=== PATIENT | male | born 1975 ===

== ENCOUNTER 2020-05-09 08:17 | Outpatient (REF) | payer OTHER, SELFPAY ==
[2020-05-09 10:26] LABS: Alanine Aminotransferase 57 U/L (0-40); Albumin Level 4.3 g/dL (3.5-5.0); Alkaline Phosphatase 64 U/L (39-117); Aspartate Amino Transferase 23 U/L (5-37); Bilirubin Direct 0.2 mg/dL (0.0-0.5); Bilirubin Total 0.3 mg/dL (0.0-1.0); Cholesterol 146 mg/dL; HDL Cholesterol 38 mg/dL; LDL Cholesterol Calculated 67 mg/dl; Total Protein 6.9 g/dL (6.5-8.0); Triglycerides 207 mg/dL
== END 2020-05-09 08:18 | disposition home or self-care (01) ==
LOC: HO.LAB 08:17
PROVIDERS: Visit Provider Internal Medicine
DX: I21.4 Non-ST elevation (NSTEMI) myocardial infarction (principal)
CPT/HCPCS: 80061; 80076

== ENCOUNTER 2020-09-03 08:39 | Outpatient (REF) | payer OTHER, SELFPAY ==
[2020-09-03 11:03] LABS: Alanine Aminotransferase 70 U/L (0-40); Albumin Level 4.5 g/dL (3.5-5.0); Alkaline Phosphatase 77 U/L (39-117); Aspartate Amino Transferase 26 U/L (5-37); Bilirubin Direct 0.2 mg/dL (0.0-0.5); Bilirubin Total 0.5 mg/dL (0.0-1.0); Total Protein 7.5 g/dL (6.5-8.0)
== END 2020-09-03 08:40 | disposition home or self-care (01) ==
LOC: HO.LAB 08:39
PROVIDERS: Visit Provider Internal Medicine
DX: I25.10 Atherosclerotic heart disease of native coronary artery without angina pectoris (principal); R94.5 Abnormal results of liver function studies
CPT/HCPCS: 36415; 80076

== ENCOUNTER → 2020-09-06 08:48 | Outpatient (BNVA) | payer OTHER, SELFPAY | PROVIDERS: PCP Internal Medicine; Visit Provider Internal Medicine | DX: I25.10 Atherosclerotic heart disease of native coronary artery without angina pectoris (principal); I10 Essential (primary) hypertension; R94.5 Abnormal results of liver function studies | CPT/HCPCS: 93005; 99212 ==

== ENCOUNTER → 2020-10-10 09:02 | Outpatient (REF) | payer OTHER, SELFPAY | LOC: HO.SL 09:02 | PROVIDERS: Visit Provider Internal Medicine | DX: Z13.89 Encounter for screening for other disorder (principal) ==

== ENCOUNTER → 2021-03-02 09:11 | Outpatient (BNVA) | payer OTHER, SELFPAY | PROVIDERS: Visit Provider Internal Medicine | DX: I25.10 Atherosclerotic heart disease of native coronary artery without angina pectoris (principal); I10 Essential (primary) hypertension; G47.33 Obstructive sleep apnea (adult) (pediatric); R94.5 Abnormal results of liver function studies | CPT/HCPCS: 99212 ==

== ENCOUNTER 2021-10-08 07:48 | Emergency (ER) | payer OTHER, SELFPAY ==
[2021-10-08 08:23] VITALS: PULSE 69; RESP 19; TEMP 36.6; O2SAT 98; BMI 32.8
--- NOTE | 2021-10-08 08:27 | ED.BACK ---
HPI - Back Pain/Injury General Chief Complaint: Back Pain/Injury Stated Complaint: Lower back pain Time Seen by Provider: 10/08/21 08:17 Source: patient Mode of arrival: ambulatory Limitations: no limitations History of Present Illness HPI Narrative: Patient reports that 1 week ago he was lifting a very large and heavy [place] while at work and felt a sudden pull in his right lower back and has had pain ever since. The pain is constant. Described as aching/spasming. Made worse with ambulation and movement. Radiates to the right lateral thigh. Unrelieved by ibuprofen and Tylenol and lidocaine patch. Denies fevers, chills, burning with micturition, urinary frequency, urgency, hesitancy, bladder or bowel dysfunction, numbness or tingling of the perineum or bilateral legs. Denies any recent surgical procedures, any known immune compromising conditions, personal history of cancer, or IV drug usage. Related Data Previous Rx's Medication Instructions Recorded aspirin 81 mg tablet,delayed 81 mg PO DAILY 90 Days #90 tab 04/11/21 release atorvastatin 80 mg tablet 80 mg PO DAILY 90 Days #90 tab 04/11/21 metoprolol succinate 50 mg 50 mg PO DAILY 90 Days #90 tab 04/11/21 tablet,extended release 24 hr cyclobenzaprine 10 mg tablet 10 mg PO TID PRN #20 tab 10/08/21 naproxen 500 mg tablet 500 mg PO BID PRN #20 tab 10/08/21 Allergies Allergy/AdvReac Type Severity Reaction Status Date / Time No Known Allergies Allergy Verified 03/02/21 09:16 Review of Systems Review of Systems: Constitutional: No weight loss, fever, chills, weakness or fatigue. HEENT: No visual loss, blurred vision, double vision. No hearing loss, sneezing, congestion, runny nose or sore throat. Skin: No rash or itching. Cardiovascular: No chest pain, chest pressure or chest discomfort. No palpitations or pedal edema. Respiratory: No shortness of breath, cough or sputum production. Gastrointestinal: No anorexia, nausea, vomiting or diarrhea. No abdominal pain or blood in stool. Genitourinary: No burning micturition. No urinary frequency or incontinence. Neurologic: No headache, dizziness, syncope, unilateral weakness, ataxia, numbness or tingling in the extremities. No change in bowel or bladder control. Musculoskeletal: + Back pain as noted in HPI. No joint pain or stiffness. Hematologic: No bleeding or bruising. Lymphatics: No enlarged lymph nodes. Psychiatric:No depression or anxiety. Endocrine: No reports of sweating. No cold or heat intolerance. No polyuria or polydipsia. [facility] Past Medical History Attestation statement: The following information was validated with the patient. Source: old records reviewed Medical History Atherosclerotic cardiovascular disease Essential hypertension Surgical History History of cardiac catheterization (~08/04/16) Family History Family History Father CVD (cardiovascular disease) Mother CVD (cardiovascular disease) Social History Social History Patient Tobacco Use Status: Never used Tobacco Advance Directives: No Advance Directives Information Provided: No Physical Exam Vital Signs: Vital Signs: Last Vital Signs Temp 98 F 10/08/21 08:23 Pulse 69 10/08/21 08:23 Resp 19 10/08/21 08:23 BP 142/82 H 10/08/21 08:54 Pulse Ox 98 10/08/21 08:23 BMI result Body Mass Index 32.8 Vital signs have been reviewed as normal and appeared to be correct. Blood pressure normal.? Heart rate normal.? Respiration rate normal. Temperature normal.? Oxygen saturation normal. Appearance: Alert.?Oriented to person, place and time. No acute distress.?Normal affect. Eyes: Pupils equal, round and reactive to light.? ENT: Pharynx normal.?? Neck: Normal inspection.? Neck supple.?? CVS: Heart sounds normal. Normal heart rate and rhythm.? Pulses normal; bilateral radial pulses 2+, bilateral posterior tibial/dorsalis pedis pulses 2+.? Respiratory: No respiratory distress.? Lung sounds clear to auscultation bilaterally?? Abdomen: Soft and non-tender. Normoactive bowel sounds. Skin: Skin warm and dry.? Normal skin color.? ? Extremities: No lower extremity edema.? No calf ttp? Back: + moderate paraspinal muscular tenderness and spasming over right lumbar region. No CVA tenderness. No midline spinal tenderness, step-off's, or deformity. Full AROM intact in bilateral lower extremities. Straight leg test positive on right; Straight leg test negative on left. No rashes, lesions, areas of induration or fluctuance, or signs of infection noted. Neuro: Moves all extremities spontaneously. 5/5 strength in hip extension/flexion, abduction, adduction. Sensation to light touch intact bilaterally. Patellar and Achilles reflex 2+ bilaterally. No ataxia, gait normal and steady. No focal neuro deficits. Course Course Course Narrative: Patient is a 46-year-old male with past medical history of hypertension, CVD, NSTEMI status post catheterization. Presents for evaluation of acute onset lower back pain with precipitating injury at work. Pain is most consistent with muscular pain, although cannot completely exclude herniated disc. On neurological exam there are no deficits. Not consistent with spinal fracture, spinal infection, epidural abscess, AAA, epidural abscess, or dissection. No high risk past medical history including incontinence, fever, immunosuppression, recent surgery or lumbar puncture, coagulopathy, significant trauma, recent unintentional weight loss, pulsatile mass, history of cancer, history of TB, history of IV drug use that would warrant MRI or CT. Not consistent with pyelonephritis, urinary tract infection, renal calculi, appendicitis, diverticulitis. On exam no concern for cauda equina syndrome. No imaging is currently indicated at this time. Patient received Toradol and cyclobenzaprine while in the ED and tolerated well. Plan for discharge home with naproxen and Flexeril, reviewed importance of rest and slow progression to lower back exercises, discussed reasons to return to the emergency department, and follow-up with primary care provider, and patient agreed with plan. MDM - Back Pain/Injury Medical Records Attestation: I reviewed the patient's medical records. Discharge Plan Discharge Clinical Impression: Strain of lumbar region Patient Disposition: Home, Self-Care Instructions: Low Back Strain (ED), Acute Low Back Pain (ED), Lower Back Exercises (ED) Additional Instructions: Take naproxen twice daily as needed for pain. Do not take additional [id number] medications such as ibuprofen/Motrin, Aleve with this medication. If the naproxen is not helping you may take Flexeril, this is a muscle relaxer and can be sedating. It may make you drowsy. Please do not drive or operate machinery for 8 hours after taking this medication. Please be sure to rest and beginning gauging and lower back exercises over the next week. Please contact her primary care provider to schedule a follow-up visit within 1 week. You may return to the emergency department with any new or worsening symptoms or concerns. Prescriptions: New naproxen 500 mg tablet 500 mg PO BID PRN (Reason: pain) Qty: 20 0RF cyclobenzaprine 10 mg tablet 10 mg PO TID PRN (Reason: muscle spasm) Qty: 20 0RF No Action atorvastatin 80 mg tablet 80 mg PO DAILY 90 Days Qty: 90 3RF metoprolol succinate 50 mg tablet extended release 24 hr 50 mg PO DAILY 90 Days Qty: 90 3RF aspirin 81 mg tablet,delayed release (DR/EC) 81 mg PO DAILY 90 Days Qty: 90 3RF Stand Alone Forms: Work/School Release Interventions: ED Discharge Assessment Last Done: 10/08/21 09:55 Discharge Date/Time: 10/08/21 09:30
[2021-10-08] MEDS: Cyclobenzaprine HCl 10 MG TABLET PO (08:33)
[2021-10-08] MEDS: Ketorolac Tromethamine 60 MG/2 ML VIAL IM (08:37)
[2021-10-08 08:54] VITALS: BP 142/82
== END 2021-10-08 09:30 | disposition home or self-care (01) ==
PROVIDERS: Emergency Provider Emergency Medicine
DX: M54.50 Low back pain, unspecified (principal); M79.651 Pain in right thigh; Z79.899 Other long term (current) drug therapy; Z79.82 Long term (current) use of aspirin
CPT/HCPCS: 96372; 99283; J1885

== ENCOUNTER 2022-03-02 12:58 | Emergency (ER) | payer OTHER, SELFPAY ==
--- NOTE | ~2022-03-02 | XR_ITS ---
EXAMINATION: XR FOOT, RIGHT CLINICAL INFORMATION: Pain, swelling and bruising COMPARISON: None TECHNIQUE: AP, lateral, and oblique views of the right foot. FINDINGS: There is question of a nondisplaced fracture of the distal tuft of the fifth toe. No other fracture is seen. Joint spaces are normal. Soft tissues are normal. XR/XR foot RT min 3V IMPRESSION: Question nondisplaced fracture of the distal tuft of the fifth toe.
[2022-03-02 13:26] VITALS: BP 165/89; PULSE 83; RESP 16; TEMP 36.9; O2SAT 98; BMI 31.1
--- NOTE | 2022-03-02 15:48 | ED_ITS ---
HPI - Extremity Problem General Chief complaint: Extremity Injury, Upper Stated complaint: toe INJ Time Seen by Provider: 03/02/22 15:48 History of Present Illness HPI Narrative: Patient complains of pain in right 3rd 4th and 5th toes after dropping a dumbbell on his foot, no other injury no numbness no weakness no tingling Related Data Previous Rx's Medication Instructions Recorded aspirin 81 mg tablet,delayed 81 mg PO DAILY 90 days #90 tabs 04/11/21 release atorvastatin 80 mg tablet 80 mg PO DAILY 90 days #90 tabs 04/11/21 metoprolol succinate 50 mg 50 mg PO DAILY 90 days #90 tabs 04/11/21 tablet,extended release 24 hr cyclobenzaprine 10 mg tablet 10 mg PO TID PRN muscle spasm #20 10/08/21 tabs naproxen 500 mg tablet 500 mg PO BID PRN pain #20 tabs 10/08/21 acetaminophen 500 mg tablet 1,000 mg PO QID PRN pain #30 tabs 03/02/22 oxycodone 5 mg tablet 5 mg PO Q6H PRN pain #7 tabs 03/02/22 Allergies Allergy/AdvReac Type Severity Reaction Status Date / Time No Known Allergies Allergy Verified 01/19/22 14:50 Review of Systems Review of Systems: Positive for right 3rd 4th and 5th negatives are no head injury no headache no neck pain no back pain no numbness no weakness no tingling no laceration no other extremity injuries Yes all other systems are reviewed and are negative PMFSH Past Medical History Source: nursing notes reviewed Medical History Atherosclerotic cardiovascular disease Essential hypertension Surgical History History of cardiac catheterization (~08/04/16) Family History Family History Father CVD (cardiovascular disease) Mother CVD (cardiovascular disease) Social History Social History (System 01/19/22 @ 14:50 by Laney Yuan) Patient Tobacco Use Status: Never used Tobacco Advance Directives: No Advance Directives Information Provided: No Physical Exam Vital Signs: Vital Signs: Last Vital Signs Temp 98.5 F 03/02/22 13:26 Pulse 83 03/02/22 13:26 Resp 16 03/02/22 13:26 BP 165/89 H 03/02/22 13:26 Pulse Ox 98 03/02/22 13:26 O2 Del Method 03/02/22 13:26 BMI result Body Mass Index 31.1 General appearance is no acute distress Head is normocephalic atraumatic Neck is supple nontender The back full range of motion Extremities full range of motion x4 Right foot exam the 3rd 4th and 5th toes are ecchymotic, skin is intact, neurovascular intact distal Neuro no focal motor sensory deficits Skin no lacerations Course Course Course Narrative: X-ray showed probable fracture of the right pinky toe, but no other fracture seen Patient is given walking shoe gisselle tape follow-up with ag equipment field service technician as needed and ambulated from the ER Discharge Plan Discharge Clinical Impression: Fracture of toe, Contusion of toe Patient Disposition: Home, Self-Care Additional Instructions: I believe you cracked the bone in her pinky toe but I did not see any other fracture Follow with ag equipment field service technician or orthopedist as needed These fractures usually heal on their own and the only treatment is to wear shoe that does not press on the fracture and is comfortable Return any concerns Prescriptions: New acetaminophen 500 mg tablet 1,000 mg PO QID PRN (Reason: pain) Qty: 30 0RF oxycodone 5 mg tablet 5 mg PO Q6H PRN (Reason: pain) Qty: 7 0RF Rx Instructions: Partial Fill upon patient request. No Action atorvastatin 80 mg tablet 80 mg PO DAILY 90 Days Qty: 90 3RF metoprolol succinate 50 mg tablet extended release 24 hr 50 mg PO DAILY 90 Days Qty: 90 3RF aspirin 81 mg tablet,delayed release (DR/EC) 81 mg PO DAILY 90 Days Qty: 90 3RF naproxen 500 mg tablet 500 mg PO BID PRN (Reason: pain) Qty: 20 0RF cyclobenzaprine 10 mg tablet 10 mg PO TID PRN (Reason: muscle spasm) Qty: 20 0RF Referrals: Shady Romo MD [Physician] - (Toe fracture) Wyatt Yao DPM [Physician] - (Toe fracture) Stand Alone Forms: Work/School Release Interventions: ED Discharge Assessment Last Done: 03/02/22 16:14 Discharge Date/Time: 03/02/22 16:15
== END 2022-03-02 16:15 | disposition home or self-care (01) ==
PROVIDERS: Emergency Provider Emergency Medicine
DX: S92.501A Displaced unspecified fracture of right lesser toe(s), initial encounter for closed fracture (principal); S90.121A Contusion of right lesser toe(s) without damage to nail, initial encounter; M79.674 Pain in right toe(s); Y29.XXXA Contact with blunt object, undetermined intent, initial encounter; Y93.9 Activity, unspecified; Y92.9 Unspecified place or not applicable; Y99.9 Unspecified external cause status; Z79.899 Other long term (current) drug therapy
CPT/HCPCS: 73630; 99283

== ENCOUNTER → 2022-11-05 15:23 | Outpatient (BNVA) | payer OTHER, SELFPAY | PROVIDERS: Visit Provider Nurse Practitioner Family | DX: I25.10 Atherosclerotic heart disease of native coronary artery without angina pectoris (principal); I10 Essential (primary) hypertension; R07.89 Other chest pain; R20.0 Anesthesia of skin; G47.10 Hypersomnia, unspecified; R47.81 Slurred speech; Z79.82 Long term (current) use of aspirin; Z79.899 Other long term (current) drug therapy; I25.2 Old myocardial infarction; Z95.5 Presence of coronary angioplasty implant and graft | CPT/HCPCS: 93005; 99212 ==

== ENCOUNTER → 2022-11-23 09:04 | Outpatient (REF) | payer OTHER, SELFPAY ==
--- NOTE | ~2022-11-23 | NM_ITS ---
Lexiscan Myocardial perfusion study Indication: Coronary disease, assess for ischemia Technique: The patient was brought in for a Lexiscan perfusion study on 11/23/2022 and was injected 0.4 mg of Lexiscan intravenously. Within a minute of this injection 35 mCi of sestamibi was given intravenously. Images were obtained using the SPECT gamma camera interlaced with the gating device. Images were obtained in supine position. Resting perfusion study was performed on 11/28/2022. Patient was administered 35 mCi of sestamibi intravenously at rest. Images were then obtained in supine position. Images were processed with the software and compared side to side in short axis, horizontal long axis and vertical long axis views. Total DLP 101mGy-cm. Findings: Raw acquisition reviewed. The stress perfusion study showed diminished tracer uptake along the inferior wall mostly the distal portion. There is also adjacent subdiaphragmatic tracer uptake with CT attenuation correction, there is some improvement which could indicate components of diaphragmatic attenuation artifact. The gated study shows diminished LV systolic function with calculated LVEF of 47%. LV cavity is normal in size. The gated study shows reduced inferior wall thickening Resting study shows diminished tracer uptake along the distal part of inferior wall. Gating at rest reveals normal wall motion with ejection fraction at 67%. The findings are consistent with fixed mid to distal inferior defect. No clear reversible defects. NM/NM cardiolite stress test Impression: 1. 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 2. Gated LVEF is 47% during stress and 67% during rest. 3. Transient ischemic dilatation not present. EKG component of the test reported separately.
--- NOTE | 2022-11-23 09:06 | CA_ITS ---
Acquisition Time: 2022-11-23 09:08:34 Total Exercise Time: 00:07:42 Test Indications: CP, CAD, PALPITATIONS Medications: SEE H Protocol: BETO Max HR: 123 BPM 71% of Pred: 171 BPM Max BP: 134/076 mmHG Max Work Load: 9.4 METS Exercise stress test exercise 7 min 42 sec of Beto protocol achieiving 71% MPHR with patients abrupt stop of exercise due to leg fatigue, with moderate SOB, no chest discomfort, with blunted chronotropic response, with no diagnostic EKGs for ischemia due to suboptimal heart rate. Assisted to sitting position and testing changed to pharmacological stress test. Pharmacoligcal stress test with Lexiscan injection, without anginal symptoms, without arrhythmias, with normotensive response to injection, without EKG changes. AMinophylline 75mg IVP given to reverse Lexiscan. Nuclear images pending. Test reviewed with Dr. Soriano. Referred By: Trudi Zazueta Overread By: TRUDI ZAZUETA
== END ==
LOC: HO.CARD 09:04
PROVIDERS: Visit Provider Nurse Practitioner Family
DX: R07.89 Other chest pain (principal); I25.10 Atherosclerotic heart disease of native coronary artery without angina pectoris; Z98.890 Other specified postprocedural states; Z95.5 Presence of coronary angioplasty implant and graft
CPT/HCPCS: 78452; 93017; A9500; J0280; J2785

== ENCOUNTER 2022-11-27 14:19 | Outpatient (REF) | payer OTHER, SELFPAY ==
--- NOTE | ~2022-11-27 | US_ITS ---
EXAMINATION: US EXTRACRANIAL CAROTID DUPLEX, BILATERAL CLINICAL INFORMATION: Slurred speech. COMPARISON: None available. TECHNIQUE: Real-time ultrasound and Doppler techniques (integrating B-mode 2-D vascular images, Doppler spectral analysis and color-flow Doppler imaging) were utilized to interrogate the extracranial carotid arteries, the vertebral arteries and proximal subclavian arteries bilaterally. The degree of stenosis is determined by criteria similar to NASCET. FINDINGS: Right Side: 1. There is mild atherosclerotic plaque seen in the bifurcation/proximal ICA region. 2. The common carotid artery PSV proximally is 184 cm/s and distally 70 cm/s. 3. The proximal internal carotid artery velocities are 89 cm/s systolic and 20 cm/s diastolic. 4. The proximal external carotid artery PSV is 89 cm/s. 5. The vertebral artery shows antegrade flow. 6. The subclavian artery waveforms are normal. Left Side: 1. There is no atherosclerotic plaque seen in the bifurcation/proximal ICA region. 2. The common carotid artery PSV proximally is 173 cm/s and distally 59 cm/s. 3. The proximal internal carotid artery velocities are 56 cm/s systolic and 11 cm/s diastolic. 4. The proximal external carotid artery PSV is 91 cm/s. 5. The vertebral artery shows antegrade flow. 6. The subclavian artery waveforms are normal. US/US carotid duplex BI IMPRESSION: 1. RIGHT: Minimal, non-hemodynamically significant stenosis of the proximal right internal carotid artery corresponding to a 0-49% stenosis by velocity criteria. 2. LEFT: Normal left internal carotid artery without atherosclerotic plaque or hemodynamically significant stenosis.
== END 2022-11-27 14:20 | disposition home or self-care (01) ==
LOC: HO.US 14:19
PROVIDERS: Visit Provider Nurse Practitioner Family
DX: I99.9 Unspecified disorder of circulatory system (principal); R20.0 Anesthesia of skin; R47.81 Slurred speech
CPT/HCPCS: 93880

== ENCOUNTER 2023-01-10 15:39 | Outpatient (AMB) | payer OTHER, SELFPAY ==
--- NOTE | 2023-01-10 15:47 | MHC.OFFVIS ---
Intake Vital Signs 01/10/23 15:48 Height 5 ft 8 in Weight 222 lb 10.67 oz BMI 33.9 BP 120/70 Blood Pressure Location Lt brachial Position Sitting Pulse 62 Intake Visit Reasons: 2 mth f/u after stress/carotid us Intake Note: 2 month f/u stress caroid us [employer] Superintendent Required: No Allergies No Known Allergies Allergy (Verified 01/10/23 15:59) Medication List - Last Reconciled 01/10/23 by EDIL Pickard acetaminophen 1,000 mg (2 x 500 mg) PO QID PRN aspirin 81 mg PO DAILY atorvastatin 80 mg PO DAILY metoprolol succinate ER 50 mg PO DAILY HPI 2 mth f/u after stress/carotid us HPI Details Elver is a 47 yo male with PMH of HTN, CAD, NSTEMI,? RCA stent 2017 who recently reported some random chest discomfort. He then underwent a nuclear stress test which did show prior inferior infarct. He also reported some intermittent left cheek numbness with slurred speech. A carotid ultrasound showed no significant carotid stenosis. A brain MRI was ordered however not completed as of yet. A home sleep study and labs are still pending as well. Today he presents for follow-up and states that he has been feeling generally well. He has had 2 episodes of left facial numbness since his last visit with me in October. His is present in confirms that he has a slight droop on the left with some slurry speech like he has been to the dentist. The episodes last up to a few hours before resolving. He has had no other neurological changes or vision disturbance. his said they received the letter stating that the MRI was approved by the insurance but they do not have a date yet. His neurology consult appointment is not until May. His prior chest discomfort has improved. He denies any chest discomfort with exertion or at rest. he has mild shortness of breath with bending forward and with exertion. He has some abdominal obesity and is aware of the need to lose weight. No dizziness, presyncope, syncope, falls.? No PND, orthopnea or edema.? He is taking his medications as directed.? They went for the home sleep study appointment and were told that his appointment was for the day before. [facility] Medical History Atherosclerotic cardiovascular disease Essential hypertension Surgical History History of cardiac catheterization (~08/04/16) Family History Father CVD (cardiovascular disease) Mother CVD (cardiovascular disease) Social History Alcohol intake: former Patient Tobacco Use Status: Never used Tobacco Substance Use Type: Marijuana Review of Systems Const All systems reviewed & are unremarkable except as noted in HPI and below ENT Reports dizziness Card Denies chest pain, Denies chest pain at rest, Denies chest pain with activity, Denies rapid heart rate, Denies pedal edema, Denies edema, Denies leg edema, Denies lightheadedness, Denies palpitations, Denies dyspnea, Reports dyspnea on exertion and Denies orthopnea Resp Denies cough, Denies dyspnea and Reports dyspnea on exertion GI Denies hematochezia and Denies change in stool character Musc Denies abnormal gait, Reports limited range of motion, Reports muscle cramps, Denies muscle weakness, Denies numbness, Denies radiating pain into limb, Denies stiffness and Denies tingling Neuro Denies abnormal gait, Reports dizziness, Denies numbness and Denies tingling Endo Denies palpitations Physical Exam Const General: cooperative, healthy appearing, comfortable and no acute distress Orientation/consciousness: patient oriented x3 Neck Neck: Yes normal visual inspection and Yes no JVD Resp Effort & Inspection: normal respiratory effort Auscultation: clear to auscultation bilaterally, no rales, no rhonchi and no wheezes Cardio Jugular venous distension: no JVD Rate: regular rate Rhythm: regular rhythm Heart sounds: S1 normal heart sound present, S2 normal heart sound present, no gallops, no murmurs and no rubs GI Inspection: Yes normal to inspection Neuro General: patient oriented x3 Extrem General: Yes normal to inspection, No no pedal edema and No calf tenderness Psych Appearance: grossly normal Mental Status: mental status grossly normal Speech and movement: Normal speech and movement present Office Procedures EKG Details: today, read by me Normal sinus rhythm, old inferior infarct, rate 62, QTC 398 milliseconds [id number], Complete Assessment & Plan Assessment & Plan (1) Atherosclerotic cardiovascular disease: Code(s): I25.10 - Atherosclerotic heart disease of [place] coronary artery without angina pectoris Plan: History of CAD with NSTEMI 2017. Cardiac catheterization showed left main-mild irregularities; mid LAD-55% stenosis; mid circumflex 65% stenosis; 1st marginal 30% stenosis; distal RCA 100% stenosis status post stenting; proximal RCA 40% stenosis. Last echo 01/2020-LVEF 50-55% and no obvious valvular pathology. A nuclear stress test was done on 01/2020 showing fixed defect along the inferior wall from prior infarct as well as superimposed diaphragmatic attenuation but no ischemia. He had a gap between follow-up with no visits between 03/02/2021 and on last visit. on last visit he reported some vague chest discomfort similar to but not as severe as prior to NSTEMI. An EKG showed sinus rhythm with no acute ST or T-wave abnormalities, Q-waves noted inferiorly. Last cholesterol check 05/09/2020 showed LDL 67. a nuclear stress test was done on 11/23/2022 showing suboptimal heart rate with exercise so nondiagnostic EKGs, use of Lexiscan to complete test. Myocardial perfusion imaging showed old infarct in the mid to distal Inferior wall. Reviewed results with him. He has no anginal sounding symptoms at present. He has no clinical signs of heart failure on exam. He is going to work on weight loss and increasing his physical activity. Will continue him on aspirin, high-dose atorvastatin and metoprolol. Ongoing cardiac risk factor modification including good blood pressure, cholesterol and weight control. Will update lab work including CMP, lipids. Signs and symptoms of angina reviewed. Emergency care if needed for symptoms. Cardiology follow-up in 6 months, sooner if needed (2) Stented coronary artery: Code(s): Z95.5 - Presence of coronary angioplasty implant and graft Plan: RCA stent 2017, nonobstructive disease in the LAD and circumflex arteries. (3) History of cardiac catheterization: Onset Date: ~08/04/16 Comment: left main-mild irregularities; mid LAD-55% stenosis; mid circumflex 65% stenosis; 1st marginal 30% stenosis; distal RCA 100% stenosis status post stenting; proximal RCA 40% stenosis Code(s): Z98.890 - Other specified postprocedural states (4) Essential hypertension: Code(s): I10 - Essential (primary) hypertension Plan: Well controlled at present time. Continue on metoprolol. (5) Chest discomfort: Code(s): R07.89 - Other chest pain (6) Left facial numbness: Code(s): R20.0 - Anesthesia of skin Plan: Patient describes intermittent numbness and tingling in his left cheek and lips. has witnessed slurred speech and facial drooping. Patient tells me this has occurred about 8 times in the last year, Twice since his last visit in October. Symptom can last up to a few hours. No associated symptoms along with it. Assessment normal at present time. He denies any history of migraines. Tells me his sister has Yepez's palsy. a carotid ultrasound was done on 11/27/2022 showing right ICA 0-49% stenosis, left ICA normal. He was referred to Neurology for further evaluation however told me that his appointment is not until May. Previously does cussed with Dr. Soriano and plan for brain MRI. Test has been approved by his insurance according to however they do not have an appointment yet. Will work on getting an appointment for him in the near future. Plan to call him with results. ED care if needed for persistent more involved symptoms. (7) Hypersomnia: Code(s): G47.10 - Hypersomnia, unspecified Plan: states that she strongly believes patient has sleep apnea. He tells me that he had a home sleep study in the past but the equipment was not working right. I see no reports in our system that indicates that sleep study was affectively completed. He says he was then supposed to have an in-hospital sleep study but no one ever called him. He admits to daytime sleepiness and waking up several times during the night. has witnessed apnea episodes and gasping. I was considering a home sleep study on him however with his high likeliness of having MARKY will have him do any in-hospital sleep study Instead. Transmission And Protection Engineer notified to set up appointment. (8) Slurred speech: Code(s): R47.81 - Slurred speech Orders: Orders Comprehensive Brandon. Panel Fast Today I10 - Essential (primary) hypertension, I25.10 - Atherosclerotic heart disease of [place] coronary artery without angina pectoris Lipid Panel Today I10 - Essential (primary) hypertension, I25.10 - Atherosclerotic heart disease of [place] coronary artery without angina pectoris RT PSG in-lab sleep study Today R06.81 - Apnea, not elsewhere classified, R47.81 - Slurred speech Coding Level of Care Code Est Pt Level 4 (67026) Diagnoses Atherosclerotic cardiovascular disease I25.10 Stented coronary artery Z95.5 History of cardiac catheterization Z98.890 Essential hypertension I10 Chest discomfort R07.89 Left facial numbness R20.0 Hypersomnia G47.10 Slurred speech R47.81 CPT Codes EKG - CPT: 62098-[id number], Complete ([id number]) Time Spent (min) 26 Comment chart review, documentation, interview, assessment
[2023-01-10 15:48] VITALS: BP 120/70; PULSE 62; BMI 33.9
== END 2023-01-10 16:20 | disposition home or self-care (01) ==
PROVIDERS: Visit Provider Nurse Practitioner Family
DX: I25.10 Atherosclerotic heart disease of native coronary artery without angina pectoris (principal); Z95.5 Presence of coronary angioplasty implant and graft; Z98.890 Other specified postprocedural states; I10 Essential (primary) hypertension; R07.89 Other chest pain; R20.0 Anesthesia of skin; G47.10 Hypersomnia, unspecified; R47.81 Slurred speech
CPT/HCPCS: 93010; 99214

== ENCOUNTER → 2023-01-10 15:39 | Outpatient (BNVA) | payer OTHER, SELFPAY | PROVIDERS: Visit Provider Nurse Practitioner Family | DX: I25.10 Atherosclerotic heart disease of native coronary artery without angina pectoris (principal); I10 Essential (primary) hypertension; R20.0 Anesthesia of skin; G47.10 Hypersomnia, unspecified; R07.89 Other chest pain; I25.2 Old myocardial infarction; Z79.899 Other long term (current) drug therapy; Z95.5 Presence of coronary angioplasty implant and graft | CPT/HCPCS: 93005; 99212 ==

== ENCOUNTER 2023-04-10 13:37 | Outpatient (REF) | payer OTHER, SELFPAY ==
--- NOTE | ~2023-04-10 | MR_ITS ---
EXAMINATION: MR BRAIN WITHOUT AND WITH CONTRAST CLINICAL INFORMATION: Slurred speech. Left facial numbness. COMPARISON: CT head 05/01/2013. TECHNIQUE: Multiplanar MR imaging of the brain was performed without and with contrast. 8 total of 10 mL Gadavist was used for this examination. FINDINGS: There is a prominent perivascular space located at the anterior aspect of the left putamen. A few scattered nonspecific foci of T2 FLAIR signal hyperintensity are visualized within the periventricular white matter. No acute territorial infarct. No pathological magnetic susceptibility artifact. Intracranial vascular flow voids are grossly maintained. Postcontrast images reveal no abnormal intracranial mass or enhancement. No intracranial mass effect or midline shift. No abnormal extra-axial collection. No hydrocephalus. A cavum septum callosum and vergae is noted. Midline structures including the cervicomedullary junction are normal. No acute bone marrow signal changes. There is no mastoid or middle ear effusion. Mild to moderate paranasal sinus disease primarily affecting the ethmoid air cells. Globes and orbits are symmetric. MR/MR head/brain wo/w con IMPRESSION: There are a few scattered chronic small vessel ischemic changes within the periventricular white matter. Otherwise unremarkable examination. No evidence of acute territorial infarct or hemorrhage. No abnormal intracranial mass or enhancement.
== END 2023-04-10 13:38 | disposition home or self-care (01) ==
LOC: HO.MRI 13:37
PROVIDERS: Visit Provider Nurse Practitioner Family
DX: R47.81 Slurred speech (principal); R20.0 Anesthesia of skin; I99.9 Unspecified disorder of circulatory system
CPT/HCPCS: 70553; A9585

== ENCOUNTER 2023-10-15 19:34 | Emergency (ER) | payer OTHER, SELFPAY ==
--- NOTE | ~2023-10-15 | XR_ITS ---
EXAMINATION: XR SHOULDER, LEFT CLINICAL INFORMATION: Left shoulder pain. COMPARISON: None available. TECHNIQUE: AP external rotation, Grashey, scapular Y, and axillary views of the left shoulder. FINDINGS: No acute fracture or dislocation. Mild joint space narrowing with tiny marginal osteophytes at the acromioclavicular and glenohumeral joints. No concerning lytic or blastic osseous lesion. No abnormal soft tissue calcification. XR/XR shoulder LT min 2V IMPRESSION: Mild acromioclavicular and glenohumeral osteoarthritis.
[2023-10-15 20:15] VITALS: BP 125/77; PULSE 66; RESP 20; TEMP 36.3; O2SAT 96; BMI 36.4
--- NOTE | 2023-10-15 20:17 | ED.GENADULT ---
HPI - General Adult General Chief complaint: Extremity Injury, Upper Stated complaint: left should lump/can't left arm Time Seen by Provider: 10/16/23 01:11 Source: patient Mode of arrival: ambulatory Limitations: no limitations History of Present Illness HPI narrative: Patient is a 48-year-old male who presents emergency department for evaluation of pain to the left shoulder with subjective swelling. Reports onset 4-5 months ago. Over the past 1-2 weeks has been notably worse. Denies any overt injury. Unable to lay on that side due to his level of pain, reports difficulty moving the arm due to his pain. He denies any numbness tingling or cold sensation to the arm/hand. He denies any associated neck pain. Related Data Previous Rx's ?Medication ?Instructions ?Recorded acetaminophen 500 mg tablet 1,000 mg (2 x 500 mg) PO QID PRN 03/02/22 pain #30 tabs aspirin 81 mg tablet,delayed 81 mg PO DAILY #90 tabs 11/05/22 release atorvastatin 80 mg tablet 80 mg PO DAILY #90 tabs 11/05/22 metoprolol succinate 50 mg 50 mg PO DAILY #90 tabs 11/05/22 tablet,extended release 24 hr oxycodone 5 mg tablet 5 mg PO Q6H PRN pain #10 tabs 10/16/23 Allergies Allergy/AdvReac Type Severity Reaction Status Date / Time No Known Allergies Allergy Verified 10/15/23 20:18 Review of Systems Review of Systems: Yes all other systems are reviewed and are negative PMFSH Past Medical History Attestation statement: The following information was validated with the patient. Source: old records reviewed Medical History Essential hypertension Atherosclerotic cardiovascular disease Surgical History History of cardiac catheterization (~08/04/16) Family History Family History Father CVD (cardiovascular disease) Mother CVD (cardiovascular disease) Social History Social History Alcohol intake: former Patient Tobacco Use Status: Never used Tobacco Substance Use Type: Marijuana Advance Directives: No Advance Directives Information Provided: No Physical Exam ED Vital Signs: Vital Signs - 24 hr 10/15/23 20:15 10/16/23 01:30 Temperature 97.4 F 98.1 F Pulse Rate 66 67 Respiratory Rate 20 12 Blood Pressure 125/77 134/85 Pulse Oximetry 96 95 Oxygen Delivery Method Room Air Room Air BMI result Body Mass Index 36.4 Appearance: Alert.?Oriented to person, place and time. No acute distress.?Normal affect. Eyes: Pupils equal, round and reactive to light.? ENT: Pharynx normal.?? Neck: Normal inspection.? Neck supple.?? CVS: Heart sounds normal. Normal heart rate and rhythm.? Pulses normal.?? Respiratory: No respiratory distress.? Lung sounds clear to auscultation bilaterally?? Abdomen: Soft and non-tender. Normoactive bowel sounds. Skin: Skin warm and dry.? Normal skin color.? ? Extremities: No extremity edema.? 2+ radial pulse bilaterally. Decreased AROM to the left shoulder particularly with overhead extension/abduction Neuro: Moves all extremities spontaneously. Sensation intact bilaterally. Ambulates with normal steady gait. Course Course Course Narrative: RME- 48 year old male presents for evaluation of left shoulder pain for the last few months. His symptoms have worsened over the last couple of days. Denies any specific trauma. Plan for x-ray of the left shoulder Medical Decision Making Medical Decision Making MDM Narrative: Patient is a 48-year-old male past medical history of hypertension, ASCVD presenting to emergency department for evaluation of left shoulder pain. Has no associated chest pain or respiratory symptoms, clinically have lower suspicion for ACS given duration of pain. Vital signs are stable. XR was obtained to evaluate for osseous abnormality/dislocation, no acute fracture dislocation is present there is however presence of arthritis. Patient was made aware of this. We discussed stretching exercises of the shoulder joint, range of motion, follow-up with primary care provider outpatient to establish physical therapy. Acetaminophen/oxycodone for pain management. Worrisome signs and symptoms that would warrant re-evaluation in the emergency department. All questions answered. Stable for discharge. Differential Diagnosis Differential Diagnoses: The differential diagnosis associated with the presentation includes (See narrative above) Independent Interpretation I performed an independent interpretation of an: Plain X-Ray (No acute fracture) Radiology Impression Discussion of test interpretation with radiology: I have reviewed the radiologist's reading. Radiologist Impression: XR/XR shoulder LT min 2V IMPRESSION: Mild acromioclavicular and glenohumeral osteoarthritis. Independent Historian Clinical information obtained from an independent historian. 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 A prescription for oxycodone was sent to your pharmacy you may take this as needed for pain that is unrelieved by acetaminophen. This is a narcotic medication. It can be addictive. You may make you drowsy. You should not drive, drink alcohol, or work while taking this medication. Contact your primary care provider to arrange for a follow-up visit outpatient, they may consider referral for physical therapy and/or Orthopedics referral. You may return back to emergency department any new or worsening symptoms or concerns. Prescriptions: New oxycodone 5 mg tablet 5 mg PO Q6H PRN (Reason: pain) Qty: 10 0RF Rx Instructions: Partial Fill upon patient request. No Action acetaminophen 500 mg tablet 1,000 mg PO QID PRN (Reason: pain) Qty: 30 0RF aspirin 81 mg tablet,delayed release (DR/EC) 81 mg PO DAILY Qty: 90 3RF atorvastatin 80 mg tablet 80 mg PO DAILY Qty: 90 3RF metoprolol succinate 50 mg tablet extended release 24 hr 50 mg PO DAILY Qty: 90 3RF Referrals: Physician,None [Primary Care Provider] - Print Language: Bengali
[2023-10-16 01:30] VITALS: BP 134/85; PULSE 67; RESP 12; TEMP 36.7; O2SAT 95
[2023-10-16 01:43] VITALS: BP 134/85; PULSE 67; RESP 12; TEMP 36.7; O2SAT 95
== END 2023-10-16 01:44 | disposition home or self-care (01) ==
PROVIDERS: Emergency Provider Emergency Medicine Emergency Medical Services
DX: M19.012 Primary osteoarthritis, left shoulder (principal); M79.602 Pain in left arm
CPT/HCPCS: 73030; 99283; 99284

== ENCOUNTER 2024-02-04 09:53 | Outpatient (AMB) | payer OTHER, SELFPAY ==
[2024-02-04 09:55] VITALS: BP 128/70; PULSE 70; BMI 35.4
--- NOTE | 2024-02-04 09:55 | A.OFFVIS_ITS ---
Vital Signs 02/04/24 09:55 Height 5 ft 6 in Weight 219 lb 9.286 oz BMI 35.4 BP 128/70 Blood Pressure Location Lt brachial Position Sitting Pulse 70 Intake Visit Reasons: 1 year fu Practice Office Associate Required: No Accompanied by: Spouse Allergies No Known Allergies Allergy (Verified 10/15/23 20:18) Medication List - Last Reconciled 02/04/24 by Moses Soriano MD acetaminophen 1,000 mg (2 x 500 mg) PO QID PRN aspirin 81 mg PO DAILY atorvastatin 80 mg PO DAILY metoprolol succinate ER 50 mg PO DAILY HPI Comments Details: Elver returns for follow-up. In 2017, he had non ST elevation myocardial infarction. Underwent cardiac catheterization and stenting of the right coronary artery. Overall, he states he is doing fine. No specific complaints like angina or shortness of breath or palpitations or in fact anything cardiac sounding. Seems to be getting along fine. He states he is compliant with medications. Does not have a primary care physician. [facility] Medical History Essential hypertension Atherosclerotic cardiovascular disease Surgical History History of cardiac catheterization (~08/04/16) Family History Father CVD (cardiovascular disease) Mother CVD (cardiovascular disease) Social History Alcohol intake: former Patient Tobacco Use Status: Never used Tobacco Substance Use Type: Marijuana Review of Systems Const Denies chills, Denies fatigue, Denies fever(s), Denies weight gain and Denies weight loss ENT Denies dizziness Card Denies chest pain, Denies leg edema, Denies lightheadedness, Denies palpitations, Denies dyspnea on exertion, Denies orthopnea and Denies other Resp Denies cough and Denies dyspnea on exertion GI Denies hematochezia and Denies change in stool character Musc Denies abnormal gait, Denies muscle weakness, Denies numbness, Denies radiating pain into limb and Denies tingling Neuro Denies abnormal gait, Denies dizziness, Denies numbness and Denies tingling Endo Denies fatigue and Denies palpitations Physical Exam Vital Signs: Last Vital Signs Pulse 70 02/04/24 09:55 BP 128/70 02/04/24 09:55 BMI result Body Mass Index 35.4 Const General: comfortable and no acute distress Orientation/consciousness: patient oriented x3 HEENT Other: Unremarkable Head: Yes normal to inspection Neck Neck: Yes normal visual inspection Chest Chest palpation & inspection: normal inspection of the chest Resp Auscultation: clear to auscultation bilaterally Cardio Palpation: normal PMI Heart sounds: S1 normal heart sound present, S2 normal heart sound present, no gallops, no murmurs and no rubs GI Palpation (GI): Soft to palpation Back/Spine/Pelvis Other: unremarkable Skin General skin exam: no rashes or lesions noted Neuro General: patient oriented x3 Extrem General: Yes normal to inspection Psych Mental Status: mental status grossly normal Office Procedures EKG Details: EKG with underlying sinus rhythm at 70/Min; cannot exclude old inferior infarct; [place]. [id number], Complete Results Reviewed Results Reviewed: Myocardial perfusion imaging-01/2020- fixed defect along the inferior wall from prior infarct as well as superimposed diaphragmatic attenuation but no ischemia. Assessment & Plan Assessment & Plan (1) Atherosclerotic cardiovascular disease: Code(s): I25.10 - Atherosclerotic heart disease of [place] coronary artery without angina pectoris Category: Medical Plan: Cardiac catheterization-2016- left main-mild irregularities; mid LAD-55% stenosis; mid circumflex 65% stenosis; 1st marginal 30% stenosis; distal RCA 100% stenosis status post stenting; proximal RCA 40% stenosis. Myocardial perfusion imaging study from 2022-old infarct, mid to distal inferior wall. Echocardiogram-01/2020-LVEF 50-55% and no obvious valvular pathology. Clinically, absolutely no angina. Continue meds including aspirin, beta-blockers, statins. Last available LDL 67mg/dl. May recheck lipids and LFTs. Mild LFT abnormality in the past but has not been rechecked. Request given. (2) Essential hypertension: Code(s): I10 - Essential (primary) hypertension Category: Medical Plan: Seems well controlled. No changes in meds. Plan Total time spent including review of data, counseling, documentation, coordination of care-31 minutes. Patient does not have a primary care physician and strongly advised him to find, as he will still need preventive care, labs extra. Orders: Orders Lipid Panel Today E78.5 - Hyperlipidemia, unspecified, I25.10 - Atherosclerotic heart disease of [place] coronary artery without angina pectoris Liver Panel Today I25.10 - Atherosclerotic heart disease of [place] coronary artery without angina pectoris Medications: Refilled atorvastatin 80 mg PO DAILY 90 tabs 3RF Coding Level of Care Code Est Pt Level 4 (85422) Diagnoses Atherosclerotic cardiovascular disease I25.10 Essential hypertension I10 CPT Codes EKG - CPT: 16614-[id number], Complete ([id number])
== END 2024-02-04 10:17 | disposition home or self-care (01) ==
PROVIDERS: Visit Provider Internal Medicine
DX: I25.10 Atherosclerotic heart disease of native coronary artery without angina pectoris (principal); I10 Essential (primary) hypertension
CPT/HCPCS: 93010; 99214

== ENCOUNTER → 2024-02-04 09:53 | Outpatient (BNVA) | payer OTHER, SELFPAY | PROVIDERS: Visit Provider Internal Medicine | DX: I25.10 Atherosclerotic heart disease of native coronary artery without angina pectoris (principal); R94.31 Abnormal electrocardiogram [ECG] [EKG]; I10 Essential (primary) hypertension; R00.1 Bradycardia, unspecified | CPT/HCPCS: 93005; 99212 ==

== ENCOUNTER 2024-12-13 10:13 | Emergency (ER) | payer OTHER, SELFPAY ==
--- NOTE | ~2024-12-13 | CT_ITS ---
CLINICAL HISTORY: left maxillary swelling CT orbits and maxillofacial bones with IV contrast Comparison: None Findings: The globes are intact. No retrobulbar hematoma or post septal swelling is seen. No orbital fractures are present. No preseptal periorbital soft tissue swelling. No facial fractures are identified. The zygomatic arches, pterygoid plates and hard palate are intact. The nasal bones and bridge are intact. The nasal septum is deviated to the right Both temporomandibular joints are congruent. The mandible are intact. Mild maxillary sinusitis bilaterally. Mild ethmoid sinusitis. No air-fluid levels. Mucoperiosteal thickening along the ostiomeatal complexes. Soft tissue swelling is seen superficial to the maxilla on the left. A 1.3 cm enhancing fluid collection is noted in this region probably infectious in etiology. Impression: 1. Soft tissue swelling superficial to the maxilla on the left with enhancement. A 1.3 cm enhancing subcutaneous fluid collection is noted in this region on the left probably infectious in etiology. 2. Maxillary and ethmoid sinusitis bilaterally obstructive type. Nasal septal deviation to the right. 3. Reactive cervical lymph nodes. This document has been electronically signed by: Dustin Anderson MD on 12/13/2024 12:39:50
[2024-12-13 10:22] VITALS: BP 152/90; PULSE 73; RESP 18; TEMP 37; O2SAT 98; BMI 32.6
[2024-12-13 10:34] VITALS: BP 152/90; PULSE 73; RESP 18; TEMP 37; O2SAT 98
[2024-12-13 10:36] LABS: MANUAL DIFF FLAG NO
[2024-12-13 10:43] LABS: Basophils Absolute Auto 0.1 X10*3/uL (0.0-0.2); Basophils Percent Auto 0.7 % (0-2); Eosinophils Absolute Auto 0.4 X10*3/uL (0.0-0.4); Eosinophils Percent Auto 3.2 % (0-4); Hematocrit 43.6 % (42.0-52.0); Hemoglobin 14.7 g/dl (14.0-18.0); Imm Gran Abs Auto 0.03 X10*3/uL (0.00-0.03); Imm Gran Pct Auto 0.2 % (0.0-0.4); Lymphocytes Absolute Auto 2.7 X10*3/uL (1.2-4.9); Lymphocytes Percent Auto 21.1 % (20-40); Mean Corpuscular HGB Conc 33.7 g/dl (31.0-36.0); Mean Platelet Volume 8.9 fL (9.4-12.4); Monocytes Percent Auto 8.2 % (2-11); Neutrophils Absolute Auto 8.4 x10*3/uL (2.0-8.3); Neutrophils Percent Auto 66.6 % (45-73); Platelet Count 327 X10*3/uL (160-400); Red Blood Count 5.25 X10*6/uL (4.60-5.80); Red Cell Distribution Width 13.4 % (11.0-16.0); White Blood Count 12.6 X10*3/uL (4.8-10.8)
--- NOTE | 2024-12-13 10:43 | ED_ITS ---
HPI - General Adult General Chief complaint: Dental/Oral Stated complaint: facial swelling Time Seen by Provider: 12/13/24 10:26 Source: patient and family ( Spouse) Mode of arrival: ambulatory Limitations: no limitations History of Present Illness ED Provider: DR. Swenson HPI narrative: 49-year-old male came in for evaluation of left cheek swelling, patient is been feeling a lump on left cheek on the inner aspect, when he tried to pop it started to have swelling of the left cheek. No fever, no chills, patient has no teeth still awaiting for his denture to come in the mail, no gum infection. Related Data Previous Rx's ?Medication ?Instructions ?Recorded acetaminophen 500 mg tablet 1,000 mg (2 x 500 mg) PO QID PRN 03/02/22 pain #30 tabs aspirin 81 mg tablet,delayed 81 mg PO DAILY #90 tabs 01/27/24 release metoprolol succinate 50 mg 50 mg PO DAILY #90 tabs 01/28/24 tablet,extended release 24 hr atorvastatin 80 mg tablet 80 mg PO DAILY #90 tabs 02/04/24 amoxicillin 875 mg-potassium 1 tab PO BID #14 tabs 12/13/24 clavulanate 125 mg tablet Allergies Allergy/AdvReac Type Severity Reaction Status Date / Time No Known Allergies Allergy Verified 12/13/24 10:25 Review of Systems 2 Review of Systems: All other systems are reviewed and are negative Constitutional: Reports as per HPI and Reports no additional constitutional complaints Eyes: Reports as per HPI and Reports no additional eye complaints Reports system reviewed and no additional complaints, except as documented Cardiovascular: Reports as per HPI and Reports no additional cardiovascular complaints Respiratory: Reports as per HPI and Reports no additional respiratory complaints Gastrointestinal: Reports as per HPI and Reports no additional gastrointestinal complaints Genitourinary: Reports no additional female genitourinary complaints Musculoskeletal: Reports no additional musculoskeletal complaints Skin/Breast: Reports system reviewed and no additional complaints, except as docu Psychiatric: Reports no additional psychiatric complaints Endocrine: Reports no additional endocrine complaints Hematologic/Lymphatic: Reports no additional hematologic/lymphatic complaints Allergic/Immunologic: Reports no additional allergic/immunologic complaints Reports system reviewed and no additional complaints, except as documented and Reports Abnormal speech present [facility] Past Medical History Medical History Essential hypertension Atherosclerotic cardiovascular disease Surgical History History of cardiac catheterization (~08/04/16) Family History Family History Father CVD (cardiovascular disease) Mother CVD (cardiovascular disease) Social History Social History Unable to assess alcohol history related to: Unknown Alcohol intake: former Patient Tobacco Use Status: Never used Tobacco Smoked in Last 30 Days: No Use of substances other than those prescribed or required for medical reasons: No Substance Use Type: Marijuana Advance Directives: No Advance Directives Information Provided: Yes Physical Exam ED Vital Signs: Vital Signs - 24 hr 12/13/24 10:22 12/13/24 10:34 12/13/24 13:56 Temperature 98.6 F 98.6 F Pulse Rate 73 73 64 Respiratory Rate 18 18 16 Blood Pressure 152/90 H 152/90 H 145/86 H Pulse Oximetry 98 98 96 Oxygen Delivery Method Room Air Room Air Room Air 12/13/24 15:23 Temperature Pulse Rate 70 Respiratory Rate 18 Blood Pressure 149/86 H Pulse Oximetry 97 Oxygen Delivery Method Room Air BMI result Body Mass Index 32.6 Vital signs have been reviewed and appear to be correct. Blood pressure elevated. Heart rate normal. Respiratory rate normal. Temperature normal. Oxygen saturation normal. Appearance: Alert. Oriented X3. No acute distress. Head: Normal external exam. Normocephalic. Atraumatic. No Tai signs noted. No raccoon eyes noted Mouth exam: Complete dental distraction, left cheek 3 x 3 cm area of fluctuation felt more from the mucous membrane, no drainage. Eyes: PERRLA. EOMI. Conjunctiva and sclera normal. Eyelids normal. ENT: TM's Normal. Pharynx normal. Uvula midline. Moist mucous membranes. No trismus noted. No drooling noted. No muffled voice noted. Neck: Normal inspection. Neck supple. FROM. No adenopathy. Thyroid Normal. No meningeal signs. No neck mass noted. CVS: Normal heart rate and rhythm. Heart sound normal. No murmurs noted. Pulses normal throughout. Respiratory: No respiratory distress. Painless inspiration. Breath sounds normal. No wheezes/rales/rhonchi noted. Chest nontender. No accessory muscle usage noted or decreased air movement noted. Abdomen: Soft and nontender. Bowel sounds normal in all 4 quadrants. No distention noted. No organomegaly noted. No visible injury noted. Back: No CVA tenderness. Full range of motion noted. Skin: Skin warm and dry. Normal skin color. Normal skin turgor. No rashes/lesions/lacerations noted. Extremities: No lower extremity edema. Extremities exhibit normal range of motion. Extremities nontender. Neuro: Oriented X 3. Cranial nerve exam: II-XII are grossly intact No motor deficit. No sensory deficit. Reflexes normal. Course Reevaluation(s) Reevaluation #1: Left cheek facial abscess, s/p I and D with small amount of pus came out, will start on antibiotic patient was instructed to follow-up with surgery or returned to the ED if worsening of symptoms, fever, or chills. Will discharge with Augmentin. Time: 15:56 Medications Administered Discontinued Medications Generic Name Dose Route Start Last Admin Trade Name Freq PRN Reason Stop Dose Admin Piperacillin Sod/Tazobactam 50 mls @ 100 mls/hr 12/13/24 10:49 12/13/24 12:05 Sod 3.375 gm/ Sodium Chloride IV 12/13/24 11:18 Infused ONCE ONE Infusion Iohexol 85 ml 12/13/24 11:11 12/13/24 11:12 Iohexol 350 Mg/Ml 100 Ml Infus..Btl IV 12/13/24 11:12 85 ml ONCE ONE Administration Procedures Abscess I/D Site: oral ( left buccal mucosa of the left cheek) Side (if applicable): left Local Anesthetic: lidocaine 2% Amount of anesthesia used (mL): 3 Technique: incised with blade Amount of fluid expressed (mL): 2 Sent for culture/gram staining?: No Irrigation: No Packing used?: none Medical Decision Making Differential Diagnosis Differential Diagnoses: The differential diagnosis associated with the presentation includes ( Buccal abscess, sinusitis, facial cellulitis.) Admission/Observation Consideration of admission/observation: Escalation of care including admission/observation considered Lab Data MDM Lab Attestation statement: I reviewed the patient's lab results. 12/13/24 10:32 12/13/24 10:32 Labs: Lab Results 12/13/24 Range/Units 10:32 WBC 12.6 H (4.8-10.8) X10*3/uL RBC 5.25 (4.60-5.80) X10*6/uL Hgb 14.7 (14.0-18.0) g/dl Hct 43.6 (42.0-52.0) % MCV 83.0 (80.0-98.0) fL MCH 28.0 (27.0-33.0) pg MCHC 33.7 (31.0-36.0) g/dl RDW 13.4 (11.0-16.0) % Plt Count 327 (160-400) X10*3/uL MPV 8.9 L (9.4-12.4) fL Immature Gran % (Auto) 0.2 (0.0-0.4) % Neut % (Auto) 66.6 (45-73) % Lymph % (Auto) 21.1 (20-40) % [place] % (Auto) 8.2 (2-11) % Eos % (Auto) 3.2 (0-4) % Baso % (Auto) 0.7 (0-2) % Lymph # (Auto) 2.7 (1.2-4.9) X10*3/uL [place] # (Auto) 1.0 (0.1-1.2) X10*3/uL Eos # (Auto) 0.4 (0.0-0.4) X10*3/uL Baso # (Auto) 0.1 (0.0-0.2) X10*3/uL Abs Immat Gran (auto) 0.03 (0.00-0.03) X10*3/uL Absolute Neuts (auto) 8.4 H (2.0-8.3) x10*3/uL Absolute Nucleated RBC 0.000 (0.0-0.012) X10*3/uL Nucleated RBC % (auto) 0.0 (0.0-0.2) /100WBC Sodium 141 (135-145) mmol/L Potassium 4.5 (3.3-5.1) mmol/L Chloride 109 H (96-108) mmol/L Carbon Dioxide 25 (22-29) mmol/L Anion Gap 12 (12-20) BUN 14 (9-16) mg/dL Creatinine 0.76 (0.5-1.4) mg/dL Estim Creat Clear Calc 130.1 Estimated GFR > 60 Random Glucose 100 (60-115) mg/dL Calcium 9.3 (8.4-10.2) mg/dL Independent Interpretation I performed an independent interpretation of an: CT Scan ( facial CT:1. Soft tissue swelling superficial to the maxilla on the left with enhancement. A 1.3 cm enhancing subcutaneous fluid collection is noted in this region on the left probably infectious in etiology. 2. Maxillary and ethmoid sinusitis bilaterally obstructive type. Nasal septal deviation) Radiology Impression Discussion of test interpretation with radiology: I have reviewed the radiologist's reading. Discharge Plan Discharge Clinical Impression: Abscess of buccal cavity Patient Disposition: Home, Self-Care Instructions: Cellulitis (ED) Prescriptions: New amoxicillin-pot clavulanate 875-125 mg tablet 1 tab PO BID Qty: 14 0RF No Action aspirin 81 mg tablet,delayed release (DR/EC) 81 mg PO DAILY Qty: 90 3RF metoprolol succinate 50 mg tablet extended release 24 hr 50 mg PO DAILY Qty: 90 3RF acetaminophen 500 mg tablet 1,000 mg PO QID PRN (Reason: pain) Qty: 30 0RF atorvastatin 80 mg tablet 80 mg PO DAILY Qty: 90 3RF Referrals: James White MD [Physician] - Print Language: Hebrew
--- NOTE | 2024-12-13 10:45 | PC.NURSE ---
49 M presents to ED with L cheek swelling x 3 days. Sts suddent onset after pinching cheek. c/o 7/10 pain in L cheek. L cheek noted to be swollen and have what looks like a ball shaped cyst. Pt does not have any teeth. Airway is clear. RR even and unlabored, denies SOB. Pt denies CP. A+OX4 and ambulatory.
[2024-12-13 10:58] LABS: Anion Gap 12 (12-20); Blood Urea Nitrogen 14 mg/dL (9-16); Calcium 9.3 mg/dL (8.4-10.2); Carbon Dioxide 25 mmol/L (22-29); Chloride 109 mmol/L (96-108); Creatinine Clr Calc Pharmacy 130.1; Estimated Glomerular Filt Rate > 60; Glucose Random 100 mg/dL (60-115); Potassium 4.5 mmol/L (3.3-5.1); Sodium 141 mmol/L (135-145)
[2024-12-13] MEDS: iohexoL 350 MG/ML 100 ML INFUS..BTL 85 ML IV (11:12)
[2024-12-13] MEDS: Piperacillin Sodium/Tazobactam 3.375 GM in 0.9 % Sodium Chloride 50 ML IV (11:28)
[2024-12-13 13:56] VITALS: BP 145/86; PULSE 64; RESP 16; O2SAT 96
[2024-12-13 15:23] VITALS: BP 149/86; PULSE 70; RESP 18; O2SAT 97
--- NOTE | 2024-12-13 15:42 | PC.NURSE ---
Assumed care of this patient at 1500, discussed w/ provider Dr. Swenson plan for patient, provider spoke with patient currently at bedside attempting aspiration. Patient requesting pain med, provider to order once procedure completed.
[2024-12-13] MEDS: Lidocaine HCl 2 % MPF 5 ML VIAL SUBCUT (16:12)
[2024-12-13] MEDS: oxyCODONE HCl Immed Release 5 MG TABLET PO (16:12)
[2024-12-13 16:21] VITALS: BP 149/86; PULSE 70; RESP 18; TEMP 36.7; O2SAT 97
== END 2024-12-13 16:22 | disposition home or self-care (01) ==
PROVIDERS: Emergency Provider Emergency Medicine
DX: K12.2 Cellulitis and abscess of mouth (principal); I10 Essential (primary) hypertension
CPT/HCPCS: 36415; 40800; 70487; 80048; 85025; 96365; 99284; J2003; J2543; Q9967

== ENCOUNTER → 2024-12-13 10:37 | Outpatient (BNV) | payer OTHER, SELFPAY | PROVIDERS: Emergency Provider Emergency Medicine; Visit Provider Radiology Diagnostic Radiology | DX: J01.00 Acute maxillary sinusitis, unspecified (principal); J01.20 Acute ethmoidal sinusitis, unspecified; R22.0 Localized swelling, mass and lump, head | CPT/HCPCS: 70487 ==